=== PATIENT | male | born 1955 | race Caucasian/White ===

== ENCOUNTER 2016-10-08 06:55 | Day surgery (SDC) | payer OTHER ==
[~2016-10-08] VITALS: Ht 198.1 cm; Wt 108.9 kg
--- NOTE | ~2016-10-08 | OP ---
PATIENT NAME: NARENDRA SAMS MEDICAL RECORD: [id number] :53 LOCATION:[facility] ADMISSION DATE: SURGEON: DANNI OORSCO MD DATE OF OPERATION: 10/08/2016 PREOPERATIVE DIAGNOSIS: Symptomatic right inguinal hernia. POSTOPERATIVE DIAGNOSIS: Symptomatic right inguinal hernia with right cord lipoma. PROCEDURES: 1. Right indirect inguinal hernia repair with bilayer preperitoneal polypropylene mesh. 2. Excision of right cord lipoma. SURGEON: Danni Orosco MD MOVIE STAR: None. BLOOD LOSS: Minimal. ANESTHESIA: General. COMPLICATIONS: None. PHYSICAL EXAMINATION: GENERAL: The patient has descended testicles. He appears to have a hydrocele on the right. He has what appears to be a varicocele on the left. He has a self-reducing right inguinal hernia. I saw the patient preoperatively. We discussed the risks, possible complications and alternatives to procedure. OPERATIVE COURSE: The patient was conveyed to the operating room electively on 10/08/2016. General anesthesia was induced by the anesthesia staff. The abdomen and genitals were sterilely prepped and draped. A transverse incision was accomplished in the right groin. Sharp dissection was carried down through the skin and subcutaneous tissue as well as Kaitlin's fascia. The external oblique aponeurosis was then cleaned of overlying connective tissue. I incised the external oblique aponeurosis along the direction of its fibers. I bluntly dissected down through the transverse abdominis and internal oblique muscles. A preperitoneal pocket was fashioned bluntly. An indirect hernia was reduced in its entirety. I entered the hernia sac. It was a sliding hernia. I ligated the sac highly with a pursestring 3-0 Vicryl suture. A cord lipoma was clamped. I transected the cord lipoma distal to the clamp and then tied off the cord lipoma vascular pedicle proximal to the clamp with a 3-0 Vicryl suture. I cut 2 ovals out of a polypropylene mesh. The 2 ovals were sutured, the other one on top of the other with a running #1 Surgidac. The mesh was placed in the preperitoneal space. Once I was satisfied with placement of the mesh, I allowed the muscular layers to fall together. I sutured these muscular layers, the internal oblique and transversus abdominis muscle layers together incorporating a portion of the underlying mesh with multiple interrupted horizontal mattress 0 Surgidac. The external oblique aponeurosis was closed with running #1 Vicryls. Kaitlin's fascia was approximated with interrupted 3-0 Vicryls. The subdermis was approximated with interrupted 3-0 Vicryls. The skin was approximated with a running intracuticular 4-0 Vicryl. Benzoin and Steri-Strips were applied. OPERATIVE REPORT [id number] NARENDRA SAMS The patient was then extubated and conveyed to post-anesthesia care unit where he was in stable condition. TRANSINT:[id number] Voice Confirmation ID: [id number] DOCUMENT ID: [id number] DANNI OROSCO MD CC: CARMEN GARIBAY MD [id number] DICTATION DATE: 10/08/168 DRAMATIC COACH: 10/08/[address] [facility] 10/08/[address] [address]
--- NOTE | ~2016-10-08 | HP ---
PATIENT: NARENDRA SAMS MEDICAL RECORD: [id number] ACCOUNT: [id number] [facility] 53 ADMISSION DATE: 10/08/16 HISTORY AND PHYSICAL EXAMINATION ADDENDUM: He is here for a right inguinal hernia repair with mesh. He also has a left varicocele; however, he is not planning on fathering any children and the varicocele is asymptomatic. The history and physical examination was performed back in July when I saw the patient in my office. The history and physical examination is unchanged from that visit. I am going to plan for a right inguinal hernia repair with mesh. The risks, possible complications and alternatives to procedure were explained to the patient. He elects to proceed. HOME MEDICINES: Advil and Dexilant. ALLERGIES: No known drug allergies. PHYSICAL EXAMINATION: Reveals no left inguinal hernia. There is a left varicocele. There was a self-reducing right inguinal hernia, which is symptomatic and tender. IMPRESSION: Right inguinal hernia repair with mesh. TRANSINT:[id number] Voice Confirmation ID: [id number] DOCUMENT ID: [id number] DANNI OROSCO MD CC: CARMEN GARIBAY MD [id number] DICTATION DATE: 10/08/16 0959 SENIOR CLINICAL DATA ANALYST: 10/08/16 1142 [facility] [address] [id number]
[~2016-10-08 06:55] MED LIST: ADVIL200 MG PO; DEXILANT60 MG PO; NEXIUM40 MG PO
[2016-10-08 08:58] VITALS: BP 144/78; Ht 198.1 cm; Wt 108.9 kg
--- NOTE | 2016-10-08 16:39 | NUR ---
STILL UNABLE TO VOID
--- NOTE | 2016-10-08 18:21 | NUR ---
1745 UP TO BATHROOM VOIDED
--- NOTE | 2016-10-08 18:21 | NUR ---
1655 FLOMAX0.8MG PO GIVEN
--- NOTE | 2016-10-08 18:23 | NUR ---
1800 VOIDED, IV DC WITH CATHEER TIP INTACT
== END 2016-10-08 18:00 | disposition home or self-care (01) ==
LOC: D.OPS 06:55 → D.PAN 10:00 → D.OPS 10:05
DX: K40.90 Unilateral inguinal hernia, without obstruction or gangrene, not specified as recurrent (principal); D17.6 Benign lipomatous neoplasm of spermatic cord; I86.1 Scrotal varices; Z79.1 Long term (current) use of non-steroidal anti-inflammatories (NSAID); Z79.899 Other long term (current) drug therapy

== ENCOUNTER 2017-03-01 10:05 | Day surgery (SDC) | payer OTHER ==
[2017-03-01 11:33] VITALS: BP 150/84; BMI 31.2
--- NOTE | 2017-03-02 10:11 | PRO ---
PATIENT:NARENDRA SAMS MEDICAL RECORD: [id number] : 53 LOCATION:[facility] ADMISSION DATE: 03/01/17 PROCEDURE PERFORMED BY: KELY RICARDO MD DATE OF PROCEDURE: 03/01/2017 Mr. Sams is a 61-year-old gentleman, who was seen here today on referral by Dr. Darin Vo. Dr. Vo had done a right inguinal hernia repair with mesh approximately 3-4 months ago and the patient has had increasing recurrent right inguinal pain post-surgery. The patient relates that the pain can be dull, it is right below the inguinal incisional scar, sometimes it can be sharp, especially with increasing activity. The patient notes that when he is out playing golf, he notes that the longer he plays, the more pronounced his pain becomes. Those days, the pain is about a 2 or 3, but when he has increase in activity levels, it can get up to 7 or 8. The patient relates that it does not radiate, but stays pretty much in the area of the inguinal incisional scar. PHYSICAL EXAMINATION: A well-developed white male, in no acute distress. The patient is currently not in any significant medications. The patient is currently on no anticoagulation therapy at this time. Discussed options with the patient felt it was probably entrapment of an ilioinguinal nerve scar tissue and felt that a series of local anesthetic injections with steroids might help with the inflammatory process and resolve the pain. Discussed ultrasound guidance of the ilioinguinal nerve and also local infiltration of the scar itself. Risks and benefits were explained to the patient including risk of bleeding, infection and damage to underlying structure. The patient understands and elected to proceed with the procedure. Under sterile conditions, Betadine prep and drape and ultrasound guidance, the ilioinguinal plain was located between the internal oblique and the transverse muscle plane. A total of 5 cc of 1% local anesthetic was used to raise the skin wheal. Under ultrasound guidance, the needle was placed between the internal oblique and transverse abdominis muscle. Along that plane, a total of 10 mL of 0.25% bupivacaine along with 80 mg of Depo-Medrol was injected. The patient tolerated that procedure well under ultrasound guidance. The patient also had a total of 10 mL with 80 mg of Depo-Medrol was instilled underneath the scar area in the inguinal area under ultrasound guidance also. The patient tolerated procedure well. The patient is to return in 1 week for repeat evaluation and possible repeat injection of his right ilioinguinal nerve and area. TRANSINT:[id number] Voice Confirmation ID: [id number] DOCUMENT ID: [id number] KELY RICARDO MD at 1011 CC: [id number] DICTATION DATE: 03/01/171421 CLOTH WASHER OPERATOR: 03/01/178 [facility] [place] 03/01/[address] [address]
== END 2017-03-01 13:30 | disposition home or self-care (01) ==
LOC: D.OPS 10:05
DX: G89.18 Other acute postprocedural pain (principal); G58.8 Other specified mononeuropathies; Z01.812 Encounter for preprocedural laboratory examination

== ENCOUNTER 2017-03-08 12:12 | Day surgery (SDC) | payer OTHER ==
[2017-03-08 14:22] VITALS: BMI 31.2
--- NOTE | 2017-03-08 14:34 | NUR ---
1355-DISCHARGE INSTRUCTIONS REVIEWED 1400-D/C HOME
--- NOTE | 2017-03-10 06:40 | PRO ---
PATIENT:NARENDRA SAMS MEDICAL RECORD: [id number] : 53 LOCATION:[facility] ADMISSION DATE: 03/08/17 PROCEDURE PERFORMED BY: KELY RICARDO MD DATE OF PROCEDURE: 03/08/2017 HISTORY: Mr. Sams is a 61-year-old male who is referred to us by Dr. Darin Vo. The patient has a right ilioinguinal nerve entrapment, probably secondary to mesh placement for a right inguinal hernia repair. The patient was seen by this service and worked up last week, a week ago today for right ilioinguinal nerve entrapment and the patient had an ilioinguinal nerve block under ultrasound guidance. The patient relates that he had some lateral numbness over the right leg area and some resolution in the right inguinal hernia area. The patient relates that his pain was a 6/10 last week, today it is about a 4-5/10. The patient's history was reviewed. The patient is not allergic to any medications. We discussed second right ilioinguinal nerve block with the patient. Risks and benefits were explained including risk of bleeding, infection, and damage to underlying structures. The patient accepts and elects to proceed with procedure. PROCEDURE: The patient placed in supine position. Betadine prep and drape, a total of 20 mL volume of 80 mg Depo-Medrol and 0.25% bupivacaine was injected along the ilioinguinal nerve area by the right incisional scar for the mesh repair for his right inguinal hernia. The patient relates that after injection series, the patient's pain was 0/10. The patient is to return next week for followup for reevaluation and possible third injection for right ilioinguinal nerve entrapment of the right ilioinguinal area. TRANSINT:[id number] Voice Confirmation ID: [id number] DOCUMENT ID: [id number] KELY RICARDO MD at 0640 CC: [id number] DICTATION DATE: 03/08/17 1353 WATER VESSEL CAPTAIN: 03/08/17 1601 [facility] 03/08/17 [facility] [address] [place] [address]
== END 2017-03-08 14:00 | disposition home or self-care (01) ==
LOC: D.OPS 12:12
DX: G89.18 Other acute postprocedural pain (principal); Z01.812 Encounter for preprocedural laboratory examination

== ENCOUNTER 2017-03-15 12:34 | Day surgery (SDC) | payer OTHER ==
[2017-03-15 13:07] VITALS: BP 143/86; BMI 30.6
--- NOTE | 2017-03-17 06:43 | CN ---
PATIENT NAME:NARENDRA REEDER MEDICAL RECORD: [id number] : 53 [facility] AD[facility] DATE: ACCOUNT: [id number] CONSULTING PHYSICIAN: KELY RICARDO MD REFERRING PHYSICIAN: DANNI OROSCO MD DATE OF CONSULTATION: 03/15/2017 Mr. Reeder is a 61-year-old gentleman who is known to this service for ilioinguinal nerve possibly entrapment after right inguinal hernia repair by Dr. Orosco. Dr. Orosco did a repair for the patient back in October and the patient returned to Dr. Orosco having some right-sided discomfort along the hernia repair. Dr. Orosco evaluated the patient and then consulted pain service for ilioinguinal block. The patient returns for his third block. However, the patient feels that the pain is not severe enough to warrant a third injection. The patient relates that although the pain has not been improving after the previous 2 injections, it does not seem to be getting worse either. The patient relates his pain at about a 2-3, mostly when there is pressure placed upon the inguinal hernia area itself. The patient relates that with motion, it has tendency to get sore occasionally, especially if he does a lot of repetitive motion tasks, but is also starting to do some light exercise routines and seems to have some improvement with the pain. We had a long discussion approximately 15 minutes about options, it boiled down to that if the patient continues to have pain or continues to get worse and that limits his daily function which currently it is not, the patient can currently walks the dog, is currently working on [employer] boat and [employer] automobile, although he has decreased some of his daily activity, it seems that his daily activity routine is fairly good. If pain limits the patient's activity or becomes worse, we will be happy to reevaluate the patient for either repeat injection and/or referral to Dr. Alvaro Dela Cruz for radiofrequency ablation of the ilioinguinal nerve on the right side. Again, the patient did not receive injection, it was just a consultation. We had a plan for followup, the patient was given pain service number to follow up if the pain becomes worse or patient feels that in future he needs reevaluation. TRANSINT:[id number] Voice Confirmation ID: [id number] DOCUMENT ID: [id number] KELY RICARDO MD at 0643 CC: [id number] DICTATION DATE: 03/15/17 1422 MEDIA REPORTER: 03/15/17 1646 [facility] [place] 03/15/17 [address] [id number] [place] [address]
== END 2017-03-15 14:31 | disposition home or self-care (01) ==
LOC: D.OPS 12:34
DX: R10.30 Lower abdominal pain, unspecified (principal); Z98.890 Other specified postprocedural states